=== PATIENT | female | born 2000 | race Caucasian/White ===

== ENCOUNTER 2022-07-16 12:07 | Emergency (ER) | payer OTHER ==
[~2022-07-16] VITALS: Ht 162.6 cm; Wt 62.9 kg
[2022-07-16 12:42] LABS: BASO % 0.2 % (0.0-1.0); EOS # 0.1 10^3/uL (0.0-0.5); EOS % 0.5 % (0.0-3.0); HEMATOCRIT 39.6 % (36.0-47.0); HEMOGLOBIN 12.8 g/dl (12.0-15.5); LYMPH # 1.6 10^3/uL (1.5-5.0); LYMPH % 12.7 % (24.0-44.0); MEAN CORPUSCULAR HGB CONC 32.3 g/dl (32.0-36.5); MEAN CORPUSCULAR VOLUME 89.8 fl (80.0-96.0); MONO # 0.6 10^3/uL (0.0-0.8); MONO % 5.1 % (2.0-8.0); NEUTROPHILS # 10.1 10^3/uL (1.5-8.5); NEUTROPHILS % 81.1 % (36.0-66.0); PLATELET COUNT, AUTOMATED 262 10^3/uL (150-450); RED BLOOD COUNT 4.41 10^6/uL (4.00-5.40); WHITE BLOOD COUNT 12.5 10^3/uL (4.0-10.0)
[2022-07-16] MEDS ORDERED: ONDANSETRON 4MG 2ML VIAL IV ONE (12:45)
[2022-07-16] MEDS ORDERED: NS 1,000 ML IV ONE (12:45)
[2022-07-16] MEDS ORDERED: MIRALAX *UNIT DOSE* 17GM PACKET PO ONE (12:50)
[2022-07-16 13:04] LABS: LIPASE 27 U/L (12-53)
[2022-07-16 13:06] LABS: ALBUMIN 3.6 G/DL (3.2-5.2); ALKALINE PHOSPHATASE 95 U/L (46-116); ALT/SGPT < 9 U/L (7.0-40); AST/SGOT 13 U/L (<34); BILIRUBIN,DIRECT < 0.1 MG/DL (<0.4); BILIRUBIN,TOTAL 0.4 MG/DL (0.3-1.2); TOTAL PROTEIN 7.6 G/DL (5.7-8.2)
[2022-07-16 15:31] VITALS: BP 125/68
== END 2022-07-16 15:44 | disposition home or self-care (01) ==
LOC: M ED 12:07
DX: O26.892 Other specified pregnancy related conditions, second trimester (principal); Z3A.18 18 weeks gestation of pregnancy
CPT/HCPCS: 76815; 80047; 80076; 81001; 83690; 84702; 85025; 96361; 96374; 99284; J2405

== ENCOUNTER 2022-09-28 16:54 | Outpatient (CLI) | payer OTHER ==
[~2022-09-28] VITALS: Ht 162.6 cm; Wt 74.6 kg
[2022-09-28 17:16] VITALS: BP 124/72
[2022-09-28] MEDS ORDERED: FOLTTAB9 PO (17:40)
[2022-09-28] MEDS ORDERED: ASCO250T20 PO (17:40)
[2022-09-28] MEDS ORDERED: OMEP10CASR PO (17:40)
[2022-09-28] MEDS ORDERED: GNP250TA9 PO (17:40)
[2022-09-28] MEDS ORDERED: IRON27TA2 PO (17:40)
[2022-09-28] MEDS ORDERED: PRENTAB9 PO (17:40)
[2022-09-28] MEDS ORDERED: ASPI81CH33 PO (17:40)
[2022-09-28] MEDS ORDERED: HOME MED LIST COMPLETE! XX SCH (17:45)
[2022-09-28 18:16] VITALS: BP 139/75
== END 2022-09-28 18:26 | disposition home or self-care (01) ==
LOC: M LDO 16:54
PROVIDERS: ATTEND Obstetrics & Gynecology
DX: O26.893 Other specified pregnancy related conditions, third trimester (principal); R42 Dizziness and giddiness; Z3A.28 28 weeks gestation of pregnancy; Z79.82 Long term (current) use of aspirin; Z79.899 Other long term (current) drug therapy
CPT/HCPCS: 59025; G0463

== ENCOUNTER 2022-10-08 18:43 | Outpatient (CLI) | payer OTHER ==
[~2022-10-08] VITALS: Ht 162.6 cm; Wt 75.1 kg
[~2022-10-08 18:43] MED LIST: ASCO250T20 PO; ASPI81CH33 PO; FOLTTAB9 PO; GNP250TA9 PO; IRON27TA2 PO; OMEP10CASR PO; PRENTAB9 PO
[2022-10-08] MEDS ORDERED: FAMO20TA PO (19:09)
[2022-10-08 19:10] VITALS: BP 126/77
[2022-10-08] MEDS ORDERED: HOME MED LIST COMPLETE! XX SCH (19:10)
== END 2022-10-08 19:55 | disposition home or self-care (01) ==
LOC: M LDO 18:43
PROVIDERS: ATTEND Obstetrics & Gynecology
DX: O36.8130 Decreased fetal movements, third trimester, not applicable or unspecified (principal); Z3A.30 30 weeks gestation of pregnancy; Z79.82 Long term (current) use of aspirin; Z79.899 Other long term (current) drug therapy; Z87.59 Personal history of other complications of pregnancy, childbirth and the puerperium
CPT/HCPCS: 59025; G0463

== ENCOUNTER 2022-10-20 10:40 | Outpatient (CLI) | payer OTHER ==
[~2022-10-20] VITALS: Ht 162.6 cm; Wt 69.9 kg
[2022-10-20 10:40] VITALS: BP 123/60; O2SAT 98
[~2022-10-20 10:40] MED LIST changes: +ALBUTEROL SULFATE 2.5MG/0.5ML INH NEB SOLN INH PRN; +EPINEPHrine INJ 1 MG/ML 1ML AMP IM PRN; +FAMO20TA PO; +diphenhydrAMINE 50MG/ML VIAL IV PRN; +methylPREDNISolone 125MG 2ML VIAL IV PRN
[2022-10-20] MEDS ORDERED: NS 1,000 ML IV SCH (11:05)
[2022-10-20] MEDS ORDERED: IRON SUCROSE 300 MG in NS 250 ML OVER 90 MIN. IV ONE (11:15)
[2022-10-20 13:08] VITALS: BP 151/65; O2SAT 98
[2022-10-20 13:30] VITALS: BP 117/71; O2SAT 97
[2022-10-20 14:25] VITALS: BP 141/80; O2SAT 98
== END 2022-10-20 13:50 | disposition home or self-care (01) ==
LOC: M INFU 10:40
PROVIDERS: ATTEND Obstetrics & Gynecology
DX: D50.9 Iron deficiency anemia, unspecified (principal)
CPT/HCPCS: 96365; 96366; J1756

== ENCOUNTER 2022-10-24 18:12 | Outpatient (CLI) | payer OTHER ==
[~2022-10-24] VITALS: Ht 162.6 cm; Wt 74.7 kg
[~2022-10-24 18:12] MED LIST changes: -ALBUTEROL SULFATE 2.5MG/0.5ML INH NEB SOLN INH PRN; -EPINEPHrine INJ 1 MG/ML 1ML AMP IM PRN; -diphenhydrAMINE 50MG/ML VIAL IV PRN; -methylPREDNISolone 125MG 2ML VIAL IV PRN
[2022-10-24 18:39] VITALS: BP 128/75
[2022-10-24] MEDS ORDERED: HOME MED LIST COMPLETE! XX SCH (18:45)
== END 2022-10-24 19:55 | disposition home or self-care (01) ==
LOC: M LDO 18:12
PROVIDERS: ATTEND Obstetrics & Gynecology
DX: O26.893 Other specified pregnancy related conditions, third trimester (principal); N89.8 Other specified noninflammatory disorders of vagina; Z3A.32 32 weeks gestation of pregnancy; Z79.82 Long term (current) use of aspirin
CPT/HCPCS: 59025; G0463

== ENCOUNTER 2022-12-12 07:12 | Inpatient (IN) | payer OTHER ==
[2022-12-12] VITALS (9 sets, daily range): BP systolic 115–121; BP diastolic 61–75; TEMP 96.6; O2SAT 97–99
[~2022-12-12] VITALS: Ht 162.6 cm; Wt 78.1 kg
[~2022-12-12 07:12] MED LIST changes: +FAMO1TAB11 PO; +FERR325T19 PO; +VITA500T9 PO
[2022-12-12] MEDS ORDERED: LACTATED RINGER'S 1000 ML IV STA (08:13)
[2022-12-12] MEDS ORDERED: OXYTOCIN DRIP 30 UNITS in IV 1 EA IV PRN ×6 (08:15)
[2022-12-12] MEDS ORDERED: BICITRA 30ML SOLN UDC PO ONE (08:15)
[2022-12-12] MEDS ORDERED: OXYTOCIN INJ 10UNITS/ML 1ML VIAL IV PRN (08:15)
[2022-12-12] MEDS ORDERED: CARBOPROST TROMETHAMINE 250 MCG/ML AMP IM PRN (08:15)
[2022-12-12] MEDS ORDERED: METHYLERGONOVINE MALEATE 0.2MG/ML 1ML VIAL IM PRN (08:15)
[2022-12-12] MEDS ORDERED: LIDOCAINE 1% MDV 20ML VIAL INFIL PRN (08:15)
[2022-12-12] MEDS ORDERED: ceFAZolin SOD 2 GM in IV 1 EA IV ONE (08:15)
[2022-12-12] MEDS ORDERED: OXYTOCIN INJ 10UNITS/ML 1ML VIAL IM PRN (08:15)
[2022-12-12] MEDS ORDERED: TRANEXAMIC ACID INJection 1,000 MG in NS 100 ML IV PRN (08:15)
[2022-12-12 08:41] LABS: HEMATOCRIT 37.1 % (36.0-47.0); HEMOGLOBIN 11.9 g/dl (12.0-15.5); MEAN CORPUSCULAR HEMOGLOBIN 27.6 pg (27.0-33.0); MEAN CORPUSCULAR HGB CONC 32.1 g/dl (32.0-36.5); MEAN CORPUSCULAR VOLUME 86.1 fl (80.0-96.0); PLATELET COUNT, AUTOMATED 220 10^3/uL (150-450); RED BLOOD COUNT 4.31 10^6/uL (4.00-5.40); WHITE BLOOD COUNT 7.8 10^3/uL (4.0-10.0)
[2022-12-12] MEDS ORDERED: HOME MED LIST COMPLETE! XX SCH (08:55)
[2022-12-12] MEDS: PRENATAL VITAMINS CHEWABLE TABLET PO SCH (09:00)
[2022-12-12] MEDS: DOCUSATE SODIUM 100MG CAPSULE PO SCH ×2 (09:00→20:16)
[2022-12-12] MEDS: LR 1,000 ML IV SCH ×2 (09:22→13:22)
[2022-12-12] MEDS ORDERED: KETOROLAC 60MG 2ML VIAL As Ordered ONE (11:03)
[2022-12-12] MEDS ORDERED: OXYTOCIN 30UNITS IN 0.9% NaCl 500ML IV BAG As Ordered ONE ×3 (11:03→13:19)
[2022-12-12] MEDS ORDERED: ONDANSETRON 4MG 2ML VIAL As Ordered ONE (11:03)
[2022-12-12] MEDS ORDERED: METOCLOPRAMIDE INJ 10MG/2ML VIAL As Ordered ONE (11:03)
[2022-12-12] MEDS ORDERED: PHENYLephrine 500MCG 5ML (100MCG/ML) SYRINGE As Ordered ONE (11:03)
[2022-12-12] MEDS ORDERED: MORPHINE PRES-FREE INJ 10 MG/10 ML VIAL As Ordered ONE (11:03)
[2022-12-12] MEDS ORDERED: ACETAMINOPHEN 1000MG 100ML IV BAG As Ordered ONE (11:03)
[2022-12-12] MEDS ORDERED: SIMETHICONE 80MG CHEW TAB PO PRN (11:55)
[2022-12-12] MEDS ORDERED: oxyCODONE 5MG TAB PO PRN ×3 (11:55→12:35)
[2022-12-12] MEDS ORDERED: RHOGAM 300MCG (1500IU) INJ IM SCH (11:55)
[2022-12-12] MEDS ORDERED: ONDANSETRON 4MG 2ML VIAL IV PRN ×2 (12:35→21:05)
[2022-12-12] MEDS ORDERED: NALOXONE INJ 0.4MG/1ML VIAL IV PRN ×2 (12:35)
[2022-12-12] MEDS: SLF 3 ML SYR IV SCH ×2 (12:35→19:45)
[2022-12-12] MEDS ORDERED: HYDROMORPHONE HCL 0.5 MG/ 0.5 ML SYRINGE IV PRN (12:35)
[2022-12-12] MEDS ORDERED: **NOTE PATIENT COMMENT** MISC XX SCH (12:35)
[2022-12-12] MEDS ORDERED: fentaNYL 100 MCG/2 ML INJECTION IV PRN (12:35)
[2022-12-12] MEDS ORDERED: MEPERIDINE 25 MG/ML 1ML VIAL IV PRN (12:35)
[2022-12-12] MEDS ORDERED: METOCLOPRAMIDE INJ 10MG/2ML VIAL IV PRN (12:35)
[2022-12-12] MEDS: KETOROLAC 30 MG/ML 1ML VIAL IV SCH ×2 (17:40→23:51)
[2022-12-12] MEDS: diphenhydrAMINE 50MG/ML VIAL IV PRN (23:51)
[2022-12-13] MEDS: LR 1,000 ML IV SCH ×3 (01:11→15:30)
[2022-12-13 02:00] VITALS: BP 115/64; O2SAT 97
[2022-12-13] MEDS: SLF 3 ML SYR IV SCH (04:35)
[2022-12-13] MEDS: KETOROLAC 30 MG/ML 1ML VIAL IV SCH (05:04)
[2022-12-13 06:00] VITALS: BP 107/58; O2SAT 97
[2022-12-13 07:19] LABS: HEMATOCRIT 26.8 % (36.0-47.0); MEAN CORPUSCULAR HEMOGLOBIN 27.7 pg (27.0-33.0); MEAN CORPUSCULAR HGB CONC 32.1 g/dl (32.0-36.5); MEAN CORPUSCULAR VOLUME 86.5 fl (80.0-96.0); PLATELET COUNT, AUTOMATED 190 10^3/uL (150-450); WHITE BLOOD COUNT 12.6 10^3/uL (4.0-10.0)
[2022-12-13 07:52] LABS: HEMOGLOBIN 8.6 g/dl (12.0-15.5)
[2022-12-13] MEDS: diphenhydrAMINE 50MG/ML VIAL IV PRN (08:13)
[2022-12-13] MEDS: DOCUSATE SODIUM 100MG CAPSULE PO SCH ×2 (08:13→21:15)
[2022-12-13] MEDS: PRENATAL VITAMINS CHEWABLE TABLET PO SCH (08:13)
[2022-12-13 10:00] VITALS: BP 114/53; O2SAT 98
[2022-12-13] MEDS: IBUPROFEN 800 MG TAB PO SCH ×2 (13:38→21:15)
[2022-12-13 14:00] VITALS: BP 113/55; O2SAT 95
[2022-12-13 18:00] VITALS: BP 120/67; O2SAT 98
[2022-12-13] MEDS: ACETAMINOPHEN TAB 650MG DOSE (2X325MG) PO PRN (18:16)
[2022-12-14] MEDS: IBUPROFEN 800 MG TAB PO SCH (05:38)
[2022-12-14 06:00] VITALS: BP 124/68; O2SAT 99
[2022-12-14] MEDS: DOCUSATE SODIUM 100MG CAPSULE PO SCH (08:14)
[2022-12-14] MEDS: PRENATAL VITAMINS CHEWABLE TABLET PO SCH (08:15)
[2022-12-14] MEDS: ACETAMINOPHEN TAB 650MG DOSE (2X325MG) PO PRN (08:15)
[2022-12-14] MEDS ORDERED: MEASLES,MUMPS,RUBELLA VACCINE INJ (MMR-II) SC.IMMUN ONE (09:00)
[2022-12-14 10:00] VITALS: BP 123/81; O2SAT 97
== END 2022-12-14 11:32 | disposition home or self-care (01) | DRG 785 ==
LOC: M LDI 07:12 → M OBS 13:55
PROVIDERS: ADMIT Obstetrics & Gynecology; ATTEND Obstetrics & Gynecology
PROC: 10D00Z1 Extraction of Products of Conception, Low, Open Approach (ICD-10-PCS; 2022-12-12)
PROC: 0UB70ZZ Excision of Bilateral Fallopian Tubes, Open Approach (ICD-10-PCS; principal; 2022-12-12 09:30)
DX: O69.81X0 Labor and delivery complicated by cord around neck, without compression, not applicable or unspecified (principal); Z30.2 Encounter for sterilization; Z3A.39 39 weeks gestation of pregnancy; Z37.0 Single live birth

== ENCOUNTER → 2023-02-07 | Outpatient (CLI) | payer OTHER | LOC: M WHC 13:52 | PROVIDERS: ATTEND Student in an Organized Health Care Education/Training Program | DX: N64.4 Mastodynia (principal) ==

== ENCOUNTER 2023-02-23 16:26 | Emergency (ER) | payer OTHER ==
[~2023-02-23] VITALS: Ht 162.6 cm; Wt 68.9 kg
[2023-02-23 16:28] VITALS: BP 139/84; TEMP 98.7; O2SAT 98
[2023-02-23] MEDS ORDERED: FLUO-96 PO (16:47)
== END 2023-02-23 18:49 | disposition left against medical advice (07) ==
LOC: M ED 16:26
DX: Z53.21 Procedure and treatment not carried out due to patient leaving prior to being seen by health care provider (principal)

== ENCOUNTER 2023-07-23 09:03 | Day surgery (SDC) | payer OTHER ==
[~2023-07-23] VITALS: Ht 162.6 cm; Wt 67.3 kg
[~2023-07-23 09:03] MED LIST changes: +FLUO-96 PO; +IBUP200C28 PO; +PROC1AER16 PR
[2023-07-23] MEDS ORDERED: LR 1,000 ML IV SCH ×2 (10:05→11:15)
[2023-07-23] MEDS ORDERED: fentaNYL 100 MCG/2 ML INJECTION As Ordered ONE (10:21)
[2023-07-23] MEDS ORDERED: MIDAZOLAM INJ 2MG/2ML VIAL As Ordered ONE (10:21)
[2023-07-23] MEDS ORDERED: LIDOCAINE 2% 100MG/5ML SDV (FOR ANES.) As Ordered ONE (10:21)
[2023-07-23] MEDS ORDERED: ONDANSETRON 4MG 2ML VIAL As Ordered ONE (10:21)
[2023-07-23] MEDS ORDERED: propofoL 200 MG/20 ML VIAL As Ordered ONE (10:21)
[2023-07-23] MEDS ORDERED: KETOROLAC 60MG 2ML VIAL As Ordered ONE (10:23)
[2023-07-23] MEDS: CIPRODEX OTIC SUSP 7.5ML As Ordered ONE (11:05)
[2023-07-23] MEDS ORDERED: METOCLOPRAMIDE INJ 10MG/2ML VIAL IV PRN (11:15)
[2023-07-23] MEDS ORDERED: diphenhydrAMINE 50MG/ML VIAL IV PRN (11:15)
[2023-07-23] MEDS ORDERED: oxyCODONE 5MG TAB PO PRN (11:15)
[2023-07-23] MEDS ORDERED: ONDANSETRON 4MG 2ML VIAL IV PRN (11:15)
[2023-07-23 12:00] VITALS: BP 129/81; TEMP 97.8; O2SAT 99
== END 2023-07-23 12:15 | disposition home or self-care (01) ==
LOC: M SDC 09:03
PROVIDERS: ATTEND Otolaryngology
DX: H65.23 Chronic serous otitis media, bilateral (principal); H69.90 Unspecified Eustachian tube disorder, unspecified ear; J32.9 Chronic sinusitis, unspecified; E78.00 Pure hypercholesterolemia, unspecified; K58.8 Other irritable bowel syndrome; K21.9 Gastro-esophageal reflux disease without esophagitis; D64.9 Anemia, unspecified; Z91.011 Allergy to milk products; Z91.018 Allergy to other foods; F41.9 Anxiety disorder, unspecified; F32.A Depression, unspecified; G43.909 Migraine, unspecified, not intractable, without status migrainosus; G40.909 Epilepsy, unspecified, not intractable, without status epilepticus; Z79.899 Other long term (current) drug therapy
CPT/HCPCS: 69436; 81025; J1100; J1885; J2250; J2405; J3010

== ENCOUNTER 2023-10-12 12:14 | Emergency (ER) | payer OTHER | END 2023-10-12 14:33 | disposition left against medical advice (07) | LOC: M ED 12:14 | DX: Z53.21 Procedure and treatment not carried out due to patient leaving prior to being seen by health care provider (principal) ==

== ENCOUNTER 2023-11-26 17:15 | Emergency (ER) | payer OTHER ==
[~2023-11-26] VITALS: Ht 162.6 cm; Wt 62.7 kg
[~2023-11-26 17:15] MED LIST changes: +TOPI-21 PO
[2023-11-26 19:35] VITALS: BP 123/61; TEMP 98.4; O2SAT 99
[2023-11-26] MEDS ORDERED: ONDA-282 PO (19:56)
== END 2023-11-26 20:05 | disposition home or self-care (01) ==
LOC: M ED 17:15
DX: S06.0X0A Concussion without loss of consciousness, initial encounter (principal); X58.XXXA Exposure to other specified factors, initial encounter; Y92.9 Unspecified place or not applicable; Y93.89 Activity, other specified; Y99.9 Unspecified external cause status; J30.81 Allergic rhinitis due to animal (cat) (dog) hair and dander; J30.89 Other allergic rhinitis; Z79.899 Other long term (current) drug therapy; Z91.89 Other specified personal risk factors, not elsewhere classified; Z91.018 Allergy to other foods; Z88.8 Allergy status to other drugs, medicaments and biological substances; Z91.011 Allergy to milk products

== ENCOUNTER 2023-12-17 04:53 | Emergency (ER) | payer OTHER ==
[~2023-12-17] VITALS: Ht 165.1 cm; Wt 61.0 kg
[~2023-12-17 04:53] MED LIST changes: +ONDA-282 PO
[2023-12-17 05:38] LABS: HEMATOCRIT 38.5 % (36.0-47.0); HEMOGLOBIN 12.2 g/dl (12.0-15.5); MEAN CORPUSCULAR HEMOGLOBIN 27.5 pg (27.0-33.0); MEAN CORPUSCULAR HGB CONC 31.7 g/dl (32.0-36.5); MEAN CORPUSCULAR VOLUME 86.7 fl (80.0-96.0); PLATELET COUNT, AUTOMATED 281 10^3/uL (150-450); RED BLOOD COUNT 4.44 10^6/uL (4.00-5.40); WHITE BLOOD COUNT 11.7 10^3/uL (4.0-10.0)
[2023-12-17 06:07] LABS: AMPHETAMINES LEVEL URINE NEGATIVE (NEGATIVE); BARBITURATES URINE NEGATIVE (NEGATIVE); BENZODIAZEPINES URINE NEGATIVE (NEGATIVE); CANNABINOIDS URINE NEGATIVE (NEGATIVE); COCAINE METABOLITE URINE NEGATIVE (NEGATIVE); METHADONE URINE NEGATIVE (NEGATIVE); OPIATES URINE NEGATIVE (NEGATIVE); PHENCYCLIDINE URINE NEGATIVE (NEGATIVE)
[2023-12-17 06:10] LABS: ETHYL ALCOHOL (ETHANOL) < 0.003 % (0.000-0.010)
[2023-12-17 06:12] LABS: ALBUMIN 4.1 G/DL (3.2-5.2); ALKALINE PHOSPHATASE 111 U/L (46-116); ALT/SGPT 22 U/L (7.0-40); AST/SGOT 10 U/L (<34); BILIRUBIN,DIRECT 0.1 MG/DL (<0.4); BILIRUBIN,TOTAL 0.4 MG/DL (0.3-1.2); BLOOD UREA NITROGEN 8 MG/DL (9-23); CALCIUM LEVEL 9.4 MG/DL (8.5-10.1); CARBON DIOXIDE LEVEL 24 MMOL/L (20-31); CHLORIDE LEVEL 106 MMOL/L (98-107); CREATININE FOR GFR 0.71 MG/DL (0.55-1.30); GLOMERULAR FILTRATION RATE > 60.0 (>60); GLUCOSE, FASTING 98 MG/DL (60-100); POTASSIUM SERUM 3.6 MMOL/L (3.5-5.1); SALICYLATE LEVEL < 3.0 MG/DL (<30); SODIUM LEVEL 137 MMOL/L (136-145); TOTAL PROTEIN 7.7 G/DL (5.7-8.2)
[2023-12-17 06:13] LABS: THYROID STIMULATING HORMONE 3.293 uIU/ML (0.55-4.78)
[2023-12-17 06:42] LABS: HCG, SERUM QUALITATIVE NEGATIVE (NEGATIVE)
[2023-12-17] MEDS ORDERED: CETI-24 PO (09:27)
[2023-12-17] MEDS ORDERED: ONDA-282 SL (09:27)
[2023-12-17] MEDS ORDERED: BENA25CA4 PO (09:27)
[2023-12-17] MEDS ORDERED: HOME MED LIST COMPLETE! XX SCH (09:30)
[2023-12-17 10:03] VITALS: BP 129/61; TEMP 97.1; O2SAT 98
== END 2023-12-17 12:14 | disposition home or self-care (01) ==
LOC: M ED 04:53
DX: F25.9 Schizoaffective disorder, unspecified (principal); F32.A Depression, unspecified; F41.9 Anxiety disorder, unspecified; F31.81 Bipolar II disorder; G90.A Postural orthostatic tachycardia syndrome [POTS]; F95.2 Tourette's disorder; Q62.2 Congenital megaureter; Z91.148 Patient's other noncompliance with medication regimen for other reason; Z91.89 Other specified personal risk factors, not elsewhere classified; Z91.018 Allergy to other foods; Z91.011 Allergy to milk products; J30.81 Allergic rhinitis due to animal (cat) (dog) hair and dander; J30.1 Allergic rhinitis due to pollen; J30.89 Other allergic rhinitis; Z88.8 Allergy status to other drugs, medicaments and biological substances

== ENCOUNTER 2023-12-20 06:21 | Day surgery (SDC) | payer OTHER ==
[~2023-12-20] VITALS: Ht 163.8 cm; Wt 63.6 kg
[~2023-12-20 06:21] MED LIST changes: +BENA25CA4 PO; +CETI-24 PO; +ONDA-282 SL; +metroNIDAZOLE 500 MG in IV 1 EA IV ONE
[2023-12-20] MEDS ORDERED: HYDROmorphone HCL 2MG/ML 1ML VIAL As Ordered ONE (06:49)
[2023-12-20] MEDS ORDERED: MIDAZOLAM INJ 2MG/2ML VIAL As Ordered ONE (06:49)
[2023-12-20] MEDS ORDERED: fentaNYL 100 MCG/2 ML INJECTION As Ordered ONE (06:49)
[2023-12-20] MEDS ORDERED: ROCURONIUM BROMIDE 50MG/5ML VIAL As Ordered ONE (06:50)
[2023-12-20] MEDS ORDERED: KETOROLAC 60MG 2ML VIAL As Ordered ONE (06:50)
[2023-12-20] MEDS ORDERED: ACETAMINOPHEN 1000MG 100ML IV BAG As Ordered ONE (06:50)
[2023-12-20] MEDS ORDERED: propofoL 200 MG/20 ML VIAL As Ordered ONE (06:50)
[2023-12-20] MEDS ORDERED: SUGAMMADEX SODIUM 500 MG/5 ML VIAL (BRIDION) As Ordered ONE (06:50)
[2023-12-20] MEDS ORDERED: ONDANSETRON 4MG 2ML VIAL As Ordered ONE (06:50)
[2023-12-20] MEDS ORDERED: LIDOCAINE 2% 100MG/5ML SDV (FOR ANES.) As Ordered ONE (06:50)
[2023-12-20 07:15] LABS: HEMATOCRIT 39.3 % (36.0-47.0); HEMOGLOBIN 12.2 g/dl (12.0-15.5); MEAN CORPUSCULAR HEMOGLOBIN 27.3 pg (27.0-33.0); MEAN CORPUSCULAR VOLUME 87.9 fl (80.0-96.0); PLATELET COUNT, AUTOMATED 296 10^3/uL (150-450); RED BLOOD COUNT 4.47 10^6/uL (4.00-5.40)
[2023-12-20] MEDS: ceFAZolin SOD 2 GM in IV 1 EA IV ONE (07:17)
[2023-12-20] MEDS: LR 1,000 ML IV SCH (07:17)
[2023-12-20] MEDS: SCOPOLAMINE 1MG TRANSDERMAL PATCH TOP ONE (07:33)
[2023-12-20] MEDS ORDERED: HYDROMORPHONE HCL 0.5 MG/ 0.5 ML SYRINGE IV PRN (10:30)
[2023-12-20] MEDS ORDERED: oxyCODONE 5MG TAB PO PRN (10:30)
[2023-12-20] MEDS ORDERED: fentaNYL 100 MCG/2 ML INJECTION IV PRN (10:30)
[2023-12-20] MEDS ORDERED: LR 1,000 ML IV SCH (10:30)
[2023-12-20] MEDS: ONDANSETRON 4MG 2ML VIAL IV PRN (10:57)
[2023-12-20] MEDS: GABAPENTIN 300 MG CAP PO PRN (11:14)
[2023-12-20 12:20] VITALS: BP 117/61; TEMP 97.3; O2SAT 98
== END 2023-12-20 12:25 | disposition home or self-care (01) ==
LOC: M SDC 06:21
PROVIDERS: ATTEND Obstetrics & Gynecology
DX: N93.9 Abnormal uterine and vaginal bleeding, unspecified (principal); R10.2 Pelvic and perineal pain; N94.6 Dysmenorrhea, unspecified; N80.9 Endometriosis, unspecified; G40.909 Epilepsy, unspecified, not intractable, without status epilepticus; F95.2 Tourette's disorder; G90.A Postural orthostatic tachycardia syndrome [POTS]; K58.8 Other irritable bowel syndrome; K21.9 Gastro-esophageal reflux disease without esophagitis; D64.9 Anemia, unspecified; F41.9 Anxiety disorder, unspecified; F32.A Depression, unspecified; G43.909 Migraine, unspecified, not intractable, without status migrainosus; Z79.899 Other long term (current) drug therapy; J30.2 Other seasonal allergic rhinitis; Z91.018 Allergy to other foods; Z91.011 Allergy to milk products
CPT/HCPCS: 36415; 58571; 58662; 81025; 85027; 86850; 86900; 86901; 88307; A6024; J0131; J0665; J0690; J1100; J1170; J1885; J2250; J2405; J3010